=== PATIENT | female | born 1930 | race Asian ===

== ENCOUNTER 2018-09-14 19:35 | Emergency (ER) | payer MEDICARE, MEDICAID ==
[~2018-09-14] VITALS: Ht 162.6 cm; Wt 38.0 kg
--- NOTE | 2018-09-14 19:46 | NUR ---
bib remsa after rolling oob at home, pt's family stated she hit left side of head on floor and wound to right great toe, denies loc, blood thinner, n/v. monitors applied, siderails up x2, family at bedside, call light within reach
[2018-09-14] MEDS ORDERED: CITA20TA9 PO (20:00)
[2018-09-14] MEDS ORDERED: GABA-827 PO (20:00)
[2018-09-14] MEDS ORDERED: LISI2.5T PO (20:00)
[2018-09-14] MEDS ORDERED: OMEP10CA4 PO (20:00)
[2018-09-14] MEDS ORDERED: BACITRACIN ZINC OINT 500U/GM, 0.9 GM ONE (21:45)
--- NOTE | 2018-09-14 21:53 | NUR ---
WOUND TO GRT TOE CLEANED AND DRESSED WITH GAUZE DSG
[2018-09-14 21:55] VITALS: BP 137/87
== END 2018-09-14 22:03 | disposition home or self-care (01) ==
LOC: ED 21:57
DX: S00.03XA Contusion of scalp, initial encounter (principal); R51 Headache; W06.XXXA Fall from bed, initial encounter; Y93.89 Activity, other specified; Y92.009 Unspecified place in unspecified non-institutional (private) residence as the place of occurrence of the external cause; Y99.8 Other external cause status
CPT/HCPCS: 70450; 72125; 99284